=== PATIENT | male | born 1965 | race Asian ===

== ENCOUNTER 2018-10-30 21:35 | Emergency (ER) | payer OTHER ==
[~2018-10-30] VITALS: Ht 165.1 cm; Wt 100.0 kg
[2018-10-30 21:44] VITALS: BP 176/111
[2018-10-30] MEDS ORDERED: LIDOcaine 1% w/epiNEPHrine 1:200,000 30ml vial IM ONE (22:35)
== END 2018-10-30 23:31 | disposition home or self-care (01) ==
LOC: ER 21:36
DX: D18.01 Hemangioma of skin and subcutaneous tissue (principal); L98.8 Other specified disorders of the skin and subcutaneous tissue
CPT/HCPCS: 12001; 99283; J3490

== ENCOUNTER 2018-11-08 07:28 | Emergency (ER) | payer OTHER ==
[~2018-11-08] VITALS: Ht 154.9 cm; Wt 106.8 kg
[2018-11-08 07:32] VITALS: BP 180/111
== END 2018-11-08 07:59 | disposition home or self-care (01) ==
LOC: ER 07:28
DX: Z48.02 Encounter for removal of sutures (principal)
CPT/HCPCS: 99281